=== PATIENT | male | born 1995 | race African-American/Black ===

== ENCOUNTER 2019-08-25 06:37 | Emergency (ER) | payer SELFPAY ==
[2019-08-25] MEDS ORDERED: ONDANSETRON 4 MG TAB.RAPDIS PO ONE (07:19)
--- NOTE | 2019-08-25 07:24 | ER Document Report ---
ED GI/ - General Chief Complaint: Vomiting/Diarrhea Stated Complaint: VOMITING Time Seen by Provider: 08/25/19 07:14 Mode of Arrival: Ambulatory Information source: Patient Notes: Chief complaint: Nausea vomiting History of complain:( obtained from----patient) 24 years old male presents today with nausea vomited 4 times and had 2 loose stools since 2:00 this morning. States that he ate in a restaurant yesterday, which did not agree with him. Denies any abdominal pain or cramps. Denies any fever chills or other constitutional symptoms. Onset: As above Duration: As above Severity: Mild Quality: As above Context: As above Exacerbating factor and relieving factors: None REVIEW OF SYSTEMS: CONSTITUTIONAL : Denies fever, chills, or sweats. Denies recent illness. EENT: Denies eye, ear, throat, or mouth pain or symptoms. Denies nasal or sinus congestion or discharge. Denies throat, tongue, or mouth swelling or difficulty swallowing. CARDIOVASCULAR: Denies chest pain. Denies palpitations or racing or irregular heart beat. Denies ankle edema. RESPIRATORY: Denies cough, cold, or chest congestion. Denies shortness of breath, difficulty breathing, or wheezing. GASTROINTESTINAL: GENITOURINARY: Denies difficulty urinating, painful urination, burning, frequency, blood in urine, or discharge. FEMALE GENITOURINARY: Denies vaginal bleeding, heavy or abnormal periods, irregular periods. Denies vaginal discharge or odor. MUSCULOSKELETAL: Denies back or neck pain or stiffness. Denies joint pain or swelling. SKIN: Denies rash, lesions or sores. HEMATOLOGIC : Denies easy bruising or bleeding. LYMPHATIC: Denies swollen, enlarged glands. NEUROLOGICAL: Denies confusion or altered mental status. Denies passing out or loss of consciousness. Denies dizziness or lightheadedness. Denies headache. Denies weakness or paralysis or loss of use of either side. Denies problems with gait or speech. Denies sensory loss, numbness, or tingling. Denies seizu res. PSYCHIATRIC: Denies anxiety or stress. Denies depression, suicidal ideation, or homicidal ideation. ALL OTHER SYSTEMS REVIEWED AND NEGATIVE. PHYSICAL EXAMINATION: GENERAL: Well-appearing, well-nourished and in no acute distress. HEAD: Atraumatic, normocephalic. EYES: Pupils equal round and reactive to light, extraocular movements intact, conjunctiva are normal. ENT: Nares patent, oropharynx clear without exudates. Moist mucous membranes. NECK: Normal range of motion, supple without lymphadenopathy LUNGS: Breath sounds clear to auscultation bilaterally and equal. No wheezes r ales or rhonchi. HEART: Regular rate and rhythm without murmurs ABDOMEN: Soft, nontender, nondistended abdomen. No guarding, no rebound. No masses appreciated. Examination of genitals-deferred Musculoskeletal: Normal range of motion, no pitting or edema. No cyanosis. NEUROLOGICAL: Cranial nerves grossly intact. Normal speech, normal gait. Normal sensory, motor exams PSYCH: Normal mood, normal affect. SKIN: Warm, Dry, normal turgor, no rashes or lesions noted. Dictation was performed using [employer] voice recognition software TRAVEL OUTSIDE OF THE [place] IN LAST 30 DAYS: No - HPI Notes: 08/25/19 07:21 Dictated Past Medical History - Social History Smoking Status: Never Smoker Frequency of alcohol use: None Drug Abuse: None Lives with: Family Family History: Reviewed & Not Pertinent Patient has suicidal ideation: No Patient has homicidal ideation: No Review of Systems - Review of Systems Notes: Dictated Physical Exam - Vital signs Vitals: Temp Pulse Resp BP Pulse Ox 97.2 F 72 16 126/79 H 98 08/25/19 06:44 08/25/19 06:44 08/25/19 06:44 08/25/19 06:44 08/25/19 06:44 - Notes Notes: Dictated Course - Re-evaluation Re-evalutation: 08/25/19 07:22 Given Zofran, subsequently given fluids p.o. - Vital Signs Vital signs: Temp Pulse Resp BP Pulse Ox 97.2 F 72 16 126/79 H 98 08/25/19 06:44 08/25/19 06:44 08/25/19 06:44 08/25/19 06:44 08/25/19 06:44 Discharge - Discharge Clinical Impression: Nausea vomiting and diarrhea Condition: Fair Disposition: HOME, SELF-CARE Instructions: Antinausea Medication ([facility]), Vomiting ([facility]) Prescriptions: Ondansetron [Zofran Odt 4 mg Tablet] 1 - 2 tab PO Q4HP PRN #10 tab.rapdis PRN Reason:
[2019-08-25 08:08] VITALS: BP 123/62
== END 2019-08-25 08:08 | disposition home or self-care (01) ==
LOC: ER 06:37
DX: R11.2 Nausea with vomiting, unspecified (principal); R19.7 Diarrhea, unspecified
CPT/HCPCS: 99283; S0119